=== PATIENT | female | born 1985 ===

== ENCOUNTER 2021-03-13 09:52 | Emergency (ER) | payer MEDICAID ==
[2021-03-13] MEDS ORDERED: HYDROmorphone 1 MG/ML Syringe IM ONE (10:35)
--- NOTE | 2021-03-13 11:11 | EDM.PDOC ---
ED HPI GENERAL MEDICAL PROBLEM - General Chief Complaint: Abdominal Pain Stated Complaint: SEVERE STOMACH PAIN Time Seen by Provider: 03/13/21 10:45 Source of Information: Reports: Patient, Family History Limitations: Reports: No Limitations - History of Present Illness INITIAL COMMENTS - FREE TEXT/NARRATIVE: 35-year-old female who developed severe stomach pain 2 hours ago after breakfast. It was upper abdominal, some radiation to the right upper quadrant with mild nausea but no vomiting. She had chills but no fever, no shortness of breath or pleuritic pain. She ready the emergency room in moderate distress, very uncomfortable. Pain radiates to the back somewhat, most of it is anterior. No recent trauma. Onset: Sudden Location: Reports: Abdomen Associated Symptoms: Reports: Other (Nausea but no vomiting). 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 Denies: Fever, Chills HEENT: Reports: No Symptoms Respiratory: Denies: Shortness of Breath Cardiovascular: Denies: Chest Pain, Palpitations Endocrine: Denies: Fatigue GI/Abdominal: Reports: Abdominal Pain, Nausea. Denies: Constipation, Diarrhea, Decreased Appetite, Vomiting : Reports: No Symptoms Musculoskeletal: Reports: No Symptoms Skin: Reports: No Symptoms Neurological: Reports: No Symptoms Psychiatric: Reports: No Symptoms ED EXAM, GI/ABD - Physical Exam Exam: See Below Exam Limited By: No Limitations General Appearance: Alert, Moderate Distress, Other (Needed fairly rapid pain relief) Eyes: Bilateral: Normal Appearance (No jaundice) Head: Atraumatic Neck: Normal Inspection Respiratory/Chest: No Respiratory Distress, Lungs Clear Cardiovascular: Regular Rate, Rhythm. No: Tachycardia GI/Abdominal Exam: Soft, Tender (Very tender to palpation with moderate guarding in the upper abdomen especially on the right side, Cole sign is equivocal. She is uncomfortable but not guarding in the lower abdomen) Extremities: Normal Inspection Neurological: Alert, Oriented Psychiatric: Normal Affect, Normal Mood Skin Exam: Warm, Dry Course - Vital Signs Last Recorded V/S: Last Vital Signs Temp 97.4 F 03/13/21 10:05 Pulse 80 03/13/21 10:05 Resp 18 03/13/21 10:05 BP 111/76 03/13/21 10:05 Pulse Ox 99 03/13/21 10:05 - Orders/Labs/Meds Labs: Laboratory Tests 03/13/21 03/13/21 03/13/21 Range/Units 10:59 10:59 11:17 WBC 18.9 H (4.5-11.0) K/uL RBC 5.37 (3.30-5.50) M/uL Hgb 15.7 H (12.0-15.0) g/dL Hct 45.4 (36.0-48.0) % MCV 85 (80-98) fL MCH 29 (27-31) pg MCHC 35 (32-36) % Plt Count 271 (150-400) K/uL Neut % (Auto) 87.4 H (36-66) % Lymph % (Auto) 6.4 L (24-44) % Winston % (Auto) 4.6 (2-6) % Eos % (Auto) 1.4 L (2-4) % Baso % (Auto) 0.2 (0-1) % Sodium 135 L (140-148) mmol/L Potassium 3.8 (3.6-5.2) mmol/L Chloride 101 (100-108) mmol/L Carbon Dioxide 26 (21-32) mmol/L Anion Gap 11.8 (5.0-14.0) mmol/L BUN 16 (7-18) mg/dL Creatinine 0.7 (0.6-1.0) mg/dL Est Cr Clr Drug Dosing 95.02 mL/min Estimated GFR (MDRD) > 60 (>60) Glucose 128 H (74-106) mg/dL Calcium 8.6 (8.5-10.1) mg/dL Total Bilirubin 0.4 (0.2-1.0) mg/dL AST 16 (15-37) U/L ALT 33 (12-78) U/L Alkaline Phosphatase 65 (46-116) U/L Total Protein 7.0 (6.4-8.2) g/dL Albumin 3.9 (3.4-5.0) g/dL Globulin 3.1 (2.3-3.5) g/dL Albumin/Globulin Ratio 1.3 (1.2-2.2) Lipase 66 L (73-393) U/L SARS-CoV-2 RNA (LOVE) Negative (NEGATIVE) Meds: Medications Discontinued Medications Generic Name Dose Route Start Last Admin Trade Name Freq PRN Reason Stop Dose Admin Hydromorphone HCl 1 mg 03/13/21 10:35 03/13/21 10:43 Hydromorphone 1 Mg/Ml Syringe IM 03/13/21 10:36 1 mg ONETIME ONE Administration - Re-Assessments/Exams Free Text/Narrative Re-Assessment/Exam: 03/13/21 11:35 1 mg of IM Dilaudid was given which gave her pretty good pain relief over the course of the next 20 minutes to half hour. CBC CMP and lipase were ordered. Bedside ultrasound showed a clear appearing gallbladder without significant wall thickening but her Cole sign again was positive. If labs indicate further study needed, formal ultrasound will be ordered. 03/13/21 12:18 White count returned elevated but all the rest of her labs were normal, her pain continued to improve. Covid was negative. She may have passed a stone or had some temporary biliary colic or functional bowel pain but I do not think further work-up is necessary at this time. Resume regular activity and return if symptoms recur. Departure - Departure Time of Disposition: 12:32 Disposition: Home, Self-Care 01 Clinical Impression: Abdominal pain Qualifiers: Abdominal location: upper abdomen, unspecified Qualified Code(s): R10.10 - Upper abdominal pain, unspecified - Discharge Information Instructions: Abdominal Pain, Adult, [id number] Referrals: PCP,None [Primary Care Provider] - Forms: ED Department Discharge Care Plan Goals: Advance diet slowly, increase activity as tolerated and return anytime if pain recurs especially persistent. Evaluation of your gallbladder with a ultrasound or possibly HIDA scan may be necessary if pain continues to bother you in the future. Sepsis Event Note (ED) - Evaluation Sepsis Screening Result: No Definite Risk - Focused Exam Vital Signs: Vital Signs Temp Pulse Resp BP Pulse Ox 03/13/21 10:05 97.4 F 80 18 111/76 99
== END 2021-03-13 12:33 | disposition home or self-care (01) ==
LOC: JP.ED 09:52
DX: R10.11 Right upper quadrant pain (principal); E11.9 Type 2 diabetes mellitus without complications; Z72.0 Tobacco use; Z79.84 Long term (current) use of oral hypoglycemic drugs; Z20.822 Contact with and (suspected) exposure to COVID-19
CPT/HCPCS: 36415; 80053; 83690; 85025; 87635; 96372; 99284; J1170; U0002

== ENCOUNTER 2023-03-10 10:19 | Emergency (ER) | payer MEDICAID ==
[2023-03-10] MEDS ORDERED: Ketorolac 30 MG/ML SDV IM ONE (11:18)
== END 2023-03-10 11:45 | disposition home or self-care (01) ==
LOC: JP.ED 10:19
DX: S89.91XA Unspecified injury of right lower leg, initial encounter (principal); F17.210 Nicotine dependence, cigarettes, uncomplicated; X50.1XXA Overexertion from prolonged static or awkward postures, initial encounter
CPT/HCPCS: 73562; 96372; 99283; J1885